=== PATIENT | female | born 1950 | race Caucasian/White ===

== ENCOUNTER 2018-06-09 09:45 | Inpatient (IN) ==
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
[2018-06-09 10:30] LABS: Basophils % 0.2 %; Eosinophils % 0.3 %; Hematocrit 38.3 % (35.3-44.9); Hemoglobin 12.9 g/dL (11.5-15.4); Immature Granulocytes % 0.2 % (0-4); Lymphocytes % 10.9 %; Mean Corpuscular HGB Conc 33.7 g/dL (31.6-35.5); Mean Corpuscular Hemoglobin 31.8 pg (28.0-33.3); Mean Corpuscular Volume 94.3 fL (83.0-100.0); Mean Platelet Volume 9.4 fL (9.4-12.4); Monocytes # 0.4 K/mcL (0.0-1.3); Neutrophils # 7.3 K/mcL (1.6-8.9); Platelet Count 217 K/mcL (140-400); Red Blood Count 4.06 M/mcL (3.82-4.97); Red Cell Distribution Width 12.6 % (11.5-14.5); Segmented Neutrophils % 83.4 %
[2018-06-09 10:42] LABS: Acetaminophen < 10 mcg/mL (10-20); BUN/Creatinine Ratio 15 (6-26); Blood Urea Nitrogen 10 mg/dL (8-23); Carbon Dioxide 29 mEq/L (23-29); Chloride 100 mEq/L (98-107); Ethanol 12 mg/dL (Less than 10); Glucose 119 mg/dL (70-105); Osmolality,Calculated 282 (280-300); Potassium 3.8 mEq/L (3.5-5.1); Salicylate < 2.5 mg/dL (15.0-30.0); Sodium 136 mEq/L (136-145); eGFR For Non-African Americans > 60 (> 60)
[2018-06-09 10:44] LABS: Bilirubin,Urine Small (Negative); Blood,Urine Small (Negative); Clarity,Urine Clear (Clear); Color,Urine Yellow (Yellow); Glucose,Urine (UA) Normal (Normal); Ketones,Urine Trace mg/dL (Negative); Leukocyte Esterase,Urine Large (Negative); Nitrite,Urine Negative (Negative); Protein,Urine Trace mg/dL (Neg-Trace); Specific Gravity,Urine 1.015 (1.010-1.025); Urobilinogen,Urine Normal (Normal)
[2018-06-09 10:48] LABS: Amphetamine Screen,Urine Negative ng/mL (Cutoff=1000); Barbiturate Screen,Urine Negative ng/mL (Cutoff=200); Benzodiazepines Screen,Urine Negative ng/mL (Cutoff=200); Cannabinoid Screen,Urine Negative ng/mL (Cutoff = 50); Cocaine Screen,Urine Negative ng/mL (Cutoff= 300); Opiate Screen,Urine Negative ng/mL (Cutoff=300); Phencyclidine Screen,Urine Negative ng/mL (Cutoff=25)
[2018-06-09 10:49] LABS: Bacteria,Urine None Seen per hpf (None-Few); Hyaline Casts,Urine None Seen per lpf (None-Few); Squamous Epithelial Cell,Urine Many per lpf (None-Few)
--- NOTE | 2018-06-09 15:20 | Emergency Department Note ---
Disposition Clinical Impression: Acute psychosis Disposition: Admitted As Inpatient Condition: Fair Referrals: Tano Celis MD [Partnered Physician] - General Adult HPI - General Chief complaint: ED Psychiatric Symptoms Stated complaint: Hallucinations Time Seen by Provider: 06/09/18 09:47 Source: patient, EMS Mode of arrival: EMS Limitations: no limitations - History of Present Illness Pain Scale: 10 - Related Data Home Medications Medication Instructions Recorded Confirmed BuPROPion SR (12 HR) [Wellbutrin 150 mg PO BID 06/09/18 06/09/18 SR] Cephalexin [Keflex] 500 mg PO Q6H 06/09/18 06/09/18 Docusate Sodium [Dok] 200 mg PO BID 06/09/18 06/09/18 Doxepin HCl 10 mg PO HS 06/09/18 06/09/18 Methadone 20 mg PO Q8HR 06/09/18 06/09/18 Multivitamin/Iron/Folic Acid 1 tab PO DAILY 06/09/18 06/09/18 [Centrum Complete Multivit Tab] OxyCODONE Immed Rel [Roxicodone 10 10 - 20 mg PO Q8H PRN 06/09/18 06/09/18 MG] Ranitidine HCl [Acid Aquatic Biologist] 150 mg PO BID 06/09/18 06/09/18 Tizanidine HCl 4 mg PO TID PRN 06/09/18 06/09/18 Allergies Allergy/AdvReac Type Severity Reaction Status Date / Time pregabalin [From Lyrica] Allergy Confusion Verified 09/13/15 12:44 Constitutional: Denies: fever, chills, weakness, weight change Eyes: Denies: eye pain, eye discharge, vision change ENT ED: Denies: ear pain, throat pain, dental pain, hearing loss, epistaxis, congestion, dysphagia Cardiovascular: Denies: chest pain, palpitations, dyspnea on exertion, edema, syncope Respiratory: Denies: cough, dyspnea, wheezes, hemoptysis, stridor Gastrointestinal: Denies: abdominal pain, nausea, vomiting, diarrhea, constipation, hematemesis, melena, hematochezia Genitourinary: Denies: dysuria, frequency, hematuria, discharge Musculoskeletal: Denies: back pain, neck pain, arthralgia, myalgia Integumentary: Denies: rash, abrasion, lesions Neurological: Denies: headache, weakness, numbness, paresthesias, confusion, abnormal gait, vertigo Psychiatric: Reports: as per HPI, anxiety, visual hallucinations, other ( delusions). Denies: depression, suicidal thoughts, homicidal thoughts, auditory hallucinations Endocrine: Denies: fatigue Hematological/Lymphatic: Denies: easy bleeding, easy bruising Allergic/Immunologic: Denies: facial swelling, urticaria Past Medical History - Past Medical History Medical history: Reports: arthritis, COPD, fibromyalgia, GERD, hepatitis, malignancy, RA, other Surgical history: Reports: other Psychiatric history: Reports: anxiety, depression, panic disorder - Social History Smoking Status: Current every day smoker Smokeless Tobacco Status: No Alcohol use: Reports: none Drug use: Reports: none Physical Exam - General Limitations: no limitations General appearance: alert, in no apparent distress Course Vital Signs Temperature 98.2 F 06/09/18 09:54 Pulse Rate 102 06/09/18 09:54 Respiratory Rate 18 06/09/18 09:54 Blood Pressure 159/110 06/09/18 09:54 O2 Sat by Pulse Oximetry 98 06/09/18 09:54 Temperature 98.2 F 06/09/18 09:54 Pulse Rate 102 06/09/18 09:54 Respiratory Rate 18 06/09/18 09:54 Blood Pressure 159/110 06/09/18 09:54 O2 Sat by Pulse Oximetry 98 06/09/18 09:54 Oxygen Delivery Oxygen Delivery Room Air Medical Decision Making - Lab Data Result diagrams: 06/09/18 09:47 06/09/18 09:47 Lab Results 06/09/18 06/09/18 06/09/18 Range/Units 09:47 09:47 10:25 WBC 8.8 (4.3-11.1) K/mcL RBC 4.06 (3.82-4.97) M/mcL Hgb 12.9 (11.5-15.4) g/dL Hct 38.3 (35.3-44.9) % MCV 94.3 (83.0-100.0) fL MCH 31.8 (28.0-33.3) pg MCHC 33.7 (31.6-35.5) g/dL RDW 12.6 (11.5-14.5) % Plt Count 217 (140-400) K/mcL MPV 9.4 (9.4-12.4) fL Immature Gran % 0.2 (0-4) % Seg Neutrophils % 83.4 % Lymphocytes % 10.9 % Monocytes % 5.0 % Eosinophils % 0.3 % Basophils % 0.2 % Neutrophils # 7.3 (1.6-8.9) K/mcL Lymphocytes # 1.0 (0.6-4.6) K/mcL Monocytes # 0.4 (0.0-1.3) K/mcL Eosinophils # 0.0 (0.0-0.6) K/mcL Basophils # 0.0 (0.0-0.2) K/mcL Sodium 136 (136-145) mEq/L Potassium 3.8 (3.5-5.1) mEq/L Chloride 100 (98-107) mEq/L Carbon Dioxide 29 (23-29) mEq/L BUN 10 (8-23) mg/dL Creatinine 0.67 (0.60-1.20) mg/dL Est GFR ( Amer) > 60 (> 60) Est GFR (Non-Af Amer) > 60 (> 60) BUN/Creatinine Ratio 15 (6-26) Glucose 119 H (70-105) mg/dL Calculated Osmolality 282 (280-300) Calcium 10.0 (8.6-10.3) mg/dL Urine Color Yellow (Yellow) Urine Clarity Clear (Clear) Urine pH 6.0 (5.0-8.0) pH Units Ur Specific [place] 1.015 (1.010-1.025) Urine Protein Trace (Neg-Trace) mg/dL Urine Glucose (UA) Normal (Normal) mg/dL Urine Ketones Trace H (Negative) mg/dL Urine Blood Small H (Negative) Urine Nitrite Negative (Negative) Urine Bilirubin Small H (Negative) Urine Urobilinogen Normal (Normal) mg/dL Ur Leukocyte Esterase Large H (Negative) Urine Microscopic RBC 5-15 H (0-3) per hpf Urine Microscopic WBC 5-15 H (0-3) per hpf Ur Squamous Epith Cells Many H (None-Few) per lpf Urine Bacteria None Seen (None-Few) per hpf Hyaline Casts None Seen (None-Few) per lpf Salicylates < 2.5 L (15.0-30.0) mg/dL Urine Opiates Screen (Hmgvbs=356) ng/mL Acetaminophen < 10 L (10-20) mcg/mL Ur Barbiturates Screen (Vtbbbi=754) ng/mL Ur Phencyclidine Scrn (Cutoff=25) ng/mL Ur Amphetamines Screen (Tqwjwv=3049) ng/mL U Benzodiazepines Scrn (Fyubxh=281) ng/mL Urine Cocaine Screen (Cutoff= 300) ng/mL U Marijuana (THC) Screen (Cutoff = 50) ng/mL Ur Drug Screen Interp Ethyl Alcohol 12 H (Less than 10) mg/dL 06/09/18 Range/Units 10:25 WBC (4.3-11.1) K/mcL RBC (3.82-4.97) M/mcL Hgb (11.5-15.4) g/dL Hct (35.3-44.9) % MCV (83.0-100.0) fL MCH (28.0-33.3) pg MCHC (31.6-35.5) g/dL RDW (11.5-14.5) % Plt Count (140-400) K/mcL MPV (9.4-12.4) fL Immature Gran % (0-4) % Seg Neutrophils % % Lymphocytes % % Monocytes % % Eosinophils % % Basophils % % Neutrophils # (1.6-8.9) K/mcL Lymphocytes # (0.6-4.6) K/mcL Monocytes # (0.0-1.3) K/mcL Eosinophils # (0.0-0.6) K/mcL Basophils # (0.0-0.2) K/mcL Sodium (136-145) mEq/L Potassium (3.5-5.1) mEq/L Chloride (98-107) mEq/L Carbon Dioxide (23-29) mEq/L BUN (8-23) mg/dL Creatinine (0.60-1.20) mg/dL Est GFR ( Amer) (> 60) Est GFR (Non-Af Amer) (> 60) BUN/Creatinine Ratio (6-26) Glucose (70-105) mg/dL Calculated Osmolality (280-300) Calcium (8.6-10.3) mg/dL Urine Color (Yellow) Urine Clarity (Clear) Urine pH (5.0-8.0) pH Units Ur Specific [place] (1.010-1.025) Urine Protein (Neg-Trace) mg/dL Urine Glucose (UA) (Normal) mg/dL Urine Ketones (Negative) mg/dL Urine Blood (Negative) Urine Nitrite (Negative) Urine Bilirubin (Negative) Urine Urobilinogen (Normal) mg/dL Ur Leukocyte Esterase (Negative) Urine Microscopic RBC (0-3) per hpf Urine Microscopic WBC (0-3) per hpf Ur Squamous Epith Cells (None-Few) per lpf Urine Bacteria (None-Few) per hpf Hyaline Casts (None-Few) per lpf Salicylates (15.0-30.0) mg/dL Urine Opiates Screen Negative (Zpzdmf=662) ng/mL Acetaminophen (10-20) mcg/mL Ur Barbiturates Screen Negative (Nltlve=374) ng/mL Ur Phencyclidine Scrn Negative (Cutoff=25) ng/mL Ur Amphetamines Screen Negative (Zfxesy=2339) ng/mL U Benzodiazepines Scrn Negative (Bxlkgz=760) ng/mL Urine Cocaine Screen Negative (Cutoff= 300) ng/mL U Marijuana (THC) Screen Negative (Cutoff = 50) ng/mL Ur Drug Screen Interp See Below Ethyl Alcohol (Less than 10) mg/dL Attestation Statement - Attestation Attestation: For this encounter, I have reviewed the LINE DRIVER or PA documentation, treatment plan, and medical decision making; and I have had face to face time with this patient. [id number] time provided
[2018-06-09] MEDS ORDERED: tiZANidine 4 MG TABLET PO PRN (18:05)
[2018-06-09] MEDS ORDERED: Naloxone 0.4 MG/ML INJ IVP PRN (18:06)
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
[2018-06-09] MEDS: BuPROPion SR (12 HR) 150 MG TABLET PO SCH (22:58)
[2018-06-09] MEDS: Famotidine 20 MG TABLET PO SCH (22:58)
[2018-06-09] MEDS: *HR* Methadone 10 MG TABLET PO SCH (23:52)
[2018-06-09] MEDS: (Doxepin Hcl [Doxepin Hcl] 10 MG) PO SCH (23:52)
[2018-06-10 05:21] LABS: Basophils % 0.4 %; Eosinophils # 0.1 K/mcL (0.0-0.6); Eosinophils % 0.7 %; Hematocrit 41.2 % (35.3-44.9); Hemoglobin 13.7 g/dL (11.5-15.4); Immature Granulocytes % 0.2 % (0-4); Lymphocytes # 2.1 K/mcL (0.6-4.6); Lymphocytes % 20.2 %; Mean Corpuscular HGB Conc 33.3 g/dL (31.6-35.5); Mean Corpuscular Hemoglobin 31.7 pg (28.0-33.3); Mean Corpuscular Volume 95.4 fL (83.0-100.0); Mean Platelet Volume 9.7 fL (9.4-12.4); Monocytes # 0.8 K/mcL (0.0-1.3); Monocytes % 7.1 %; Neutrophils # 7.6 K/mcL (1.6-8.9); Platelet Count 270 K/mcL (140-400); Red Blood Count 4.32 M/mcL (3.82-4.97); Red Cell Distribution Width 12.6 % (11.5-14.5); Segmented Neutrophils % 71.4 %
[2018-06-10 05:43] LABS: Alanine Aminotransferase 24 Units/L (7-52); Albumin 4.9 g/dL (3.5-5.7); Albumin/Globulin Ratio 1.3 (1.1-2.2); Alkaline Phosphatase 74 Units/L (34-104); Aspartate Amino Transferase 36 Units/L (13-39); BUN/Creatinine Ratio 16 (6-26); Bilirubin,Total 0.8 mg/dL (0.3-1.0); Blood Urea Nitrogen 11 mg/dL (8-23); Calcium 9.9 mg/dL (8.6-10.3); Carbon Dioxide 25 mEq/L (23-29); Chloride 100 mEq/L (98-107); Globulin 3.7 g/dL (2.4-3.5); Glucose 102 mg/dL (70-105); Osmolality,Calculated 284 (280-300); Potassium 3.2 mEq/L (3.5-5.1); Sodium 137 mEq/L (136-145); Total Protein 8.6 g/dL (6.4-8.9); eGFR For Non-African Americans > 60 (> 60)
[2018-06-10] MEDS: Famotidine 20 MG TABLET PO SCH ×2 (08:53→19:53)
[2018-06-10] MEDS: *HR* Methadone 10 MG TABLET PO SCH ×3 (08:53→23:38)
[2018-06-10] MEDS: BuPROPion SR (12 HR) 150 MG TABLET PO SCH ×3 (08:54→19:51)
--- NOTE | 2018-06-10 09:56 | Internal Med Progress Note ---
Hospitalist Progress Note - Encounter Date of Encounter: 06/10/18 Time of Encounter: 09:51 - Subjective Interval History: Continues to have altered mental status and psychosis. Etiology unclear, no acute changes overnight. Psychiatry to see this afternoon - Exam Vitals: Temp Pulse Resp BP Pulse Ox 98.3 F 89 18 164/97 97 06/10/18 04:25 06/10/18 07:04 06/10/18 04:25 06/10/18 07:04 06/10/18 07:04 Exam: PHYSICAL EXAMINATION: GENERAL: The patient is a well-developed, well-nourished male in no apparent distress. He is alert and oriented x3. HEENT: Head is normocephalic and atraumatic. Extraocular muscles are intact. Pupils are equal, round, and reactive to light and accommodation. Nares appeared normal. Mouth is well hydrated and without lesions. Mucous membranes are moist. Posterior pharynx clear of any exudate or lesions. NECK: Supple. No carotid bruits. No lymphadenopathy or thyromegaly. LUNGS: Clear to auscultation. HEART: Regular rate and rhythm without murmur. ABDOMEN: Soft, nontender, and nondistended. Positive bowel sounds. No hepatosplenomegaly was noted. EXTREMITIES: Without any cyanosis, clubbing, rash, lesions or edema. NEUROLOGIC: Cranial nerves II through XII are grossly intact. PSYCHIATRIC: Patient having active auditory or visual hallucinations, flights of thoughts and confabulation SKIN: No ulceration or induration present. - Assessment and Plan (1) Acute psychosis Current Visit: Yes Status: Acute Assessment and Plan: Presents with acute psychosis, delusional, flights of thought; patient is difficult to redirect Concern for opiate withdrawal; history of opiate and methadone use; however, urine toxic screen negative for opiates The patient is a poor historian, she reports that she has been taking her opiates regularly Patient denies any suicidal/homicidal ideation, she denies hallucinations however is having obvious auditory/visual hallucinations, during my assessment she was talking to people and into a chair next to me and seeing "streamers "sticking out of her skin. I discussed with her what streamers meant she was unable to provide any detailed answer Obtain CT imaging of head which was negative for acute intracranial abnormality Psychiatrist to see in consultation-once patient medically cleared for discharge to 1-a psychiatric unit Opiates have been resumed with concern for opiate withdrawal however, patient's mental status has not improved, continue to monitor. Medically, the patient does appear stable at this time; defer to psychiatry for discharge Continue home medications Continue to closely monitor for worsening psychosis One-to-one sitter (2) Opiate withdrawal Current Visit: Yes Status: Suspected Assessment and Plan: Above (3) Hypertension Current Visit: Yes Status: Acute Assessment and Plan: Denies history of hypertension and there is no anti-HTN medications on patient' s home medication list. We will start her on a low-dose beta barbara twice a day at this time and she is continuing to be hypertensive throughout this stay. Closely monitor and up titrate as necessary (4) Hypokalemia Current Visit: Yes Status: Acute Assessment and Plan: Potassium 3.2 this morning, replete DVT Prophylaxis: Ambulate - Time Spent with Patient Total time spent is greater than 50% in coordination of care (as documented) at patient's floor/unit and/or counseling patient: less than 15 minutes Plan of Care Discussed with: patient Internal Medicine: Result - Labs CBC & Chem 7: 06/10/18 04:21 06/10/18 04:21 Labs: Short CBC 06/10/18 Range/Units 04:21 WBC 10.6 (4.3-11.1) K/mcL Hgb 13.7 (11.5-15.4) g/dL Hct 41.2 (35.3-44.9) % Plt Count 270 (140-400) K/mcL Neutrophils # 7.6 (1.6-8.9) K/mcL BMP 06/10/18 04:21 Sodium 137 Potassium 3.2 L Chloride 100 Carbon Dioxide 25 BUN 11 Creatinine 0.70 Glucose 102 Calcium 9.9 Liver Function 06/10/18 Range/Units 04:21 Total Bilirubin 0.8 (0.3-1.0) mg/dL AST 36 (13-39) Units/L ALT 24 (7-52) Units/L Alkaline Phosphatase 74 (34-104) Units/L Albumin 4.9 (3.5-5.7) g/dL Consult Discharge Plan - Plan (3) Hypertension Qualifiers: Hypertension type: essential hypertension Qualified Code(s): I10 - Essential (primary) hypertension
--- NOTE | 2018-06-10 15:18 | Consult Note ---
Date of Encounter: 06/10/18 Time of Encounter: 14:30 Assessment & Recommendation (1) Depressed Current visit: Yes Status: Acute Qualifiers: Depression Type: major depressive disorder Active/Remission status: currently active Major depression episode severity: severe Psychotic features: without psychotic features Qualified Code(s): F32.2 - Major depressive disorder, single episode, severe without psychotic features (2) Acute psychosis Current visit: Yes Status: Acute History of Present Illness Patient: new to practice Requesting Physician: Tyler Carter MD Reason for consult: psychosis History of present illness: Pt is a 67 yo, , female, who presents for exacerbation of psychosis and acute intermittent delirium. Pt noted "things have just gotten really bad over the past few weeks. During the interview pt asked her grandmother a question who she stated was sitting in the room with us and then responded with "my grandmother says that you are right." Pt did note she felt safe and comfortable on the unit. Pt was in agreement with treatment plan. Pt noted she slept almost none last night. Pt noted her appetite is reduced....but getting better. Pt rated her depression a 5, on a scale of zero to ten with ten being the worst and zero being none. Pt rate her anxiety a "6, on the same scale. As mentioned previously pt was actively having visual and auditory hallucinations. Pt denied any thoughts to harm herself or anyone else. Pt denied any hx of HIV, TBIs or seizures. when asked if pt had a hx of HEP C she was unclear what HEP C was. No TD noted, AIMS=0 Tobacco: 1ppd Alcohol: Denies any current however noted she did have hx of alcohol use D/O. Pt noted she use to drink 10-12 beers per day......about [address]: Denies Caffeine: 2-3 per day 1.Interval hx 2.Continue current medications 3.Review current labs 4.Pt had an opportunity to ask questions and discuss current treatment plan. 5.Supportive therapy was provided 6.Pt encouraged to consider group or individual therapy 7.Pt was in agreement with treatment plan. 8.Pt was educated on the risks benefits and side effects of current medications. 9. Start risperidone 2 mg PO QHS for mood Pt was educated on the risks benefits and side effects of current medications including no medications, pt was in agreement. 10. Consider reduction of opioid medications. CC: Tyler Carter MD Past Med Surg Social Fam HX - Past Medical History Medical history: arthritis, COPD, fibromyalgia, GERD, hepatitis, malignancy, RA , other - Past Psychiatric History Psychiatric history: Reports: depression Family psychiatric history: Yes Family History of Suicide: None - Past Surgical History Surgical History: other - Social History Smoking Status: Current every day smoker Smokeless Tobacco Status: No Alcohol use: none Drug use: none - Family History Mother Hx Family Cardiac Disorders: Yes Hx Family Respiratory Disorders: No Father Living Status: Age at : 75 Cause of : Colon cancer Hx Family Cardiac Disorders: Yes Hx Family Respiratory Disorders: No Hx Family Cancer: Yes (Colon cancer) Medications & Allergies BuPROPion SR (12 HR) [Wellbutrin SR] 150 mg PO BID 06/09/18 [History] Cephalexin [Keflex] 500 mg PO Q6H 06/09/18 [History] Docusate Sodium [Dok] 200 mg PO BID 06/09/18 [History] Doxepin HCl 10 mg PO HS 06/09/18 [History] Methadone 20 mg PO Q8HR 06/09/18 [History] Multivitamin/Iron/Folic Acid [Centrum Complete Multivit Tab] 1 tab PO DAILY 03/21 [History] OxyCODONE Immed Rel [Roxicodone 10 MG] 10 - 20 mg PO Q8H PRN 06/09/18 [History] Ranitidine HCl [Acid Guide Domestic [employer]] 150 mg PO BID 06/09/18 [History] Tizanidine HCl 4 mg PO TID PRN 06/09/18 [History] 3 Allergy/AdvReac Type Severity Reaction Status Date / Time pregabalin [From Lyrica] Allergy Confusion Verified 09/13/15 12:44 Review of Systems Constitutional: Denies: fever, chills, weakness, weight change Eyes: Denies: eye pain, vision change Ears, Nose, Throat: Denies: ear pain, throat pain, dental pain, hearing loss, congestion Cardiovascular: Denies: chest pain, palpitations, dyspnea on exertion Respiratory: Denies: cough, dyspnea, wheezes Gastrointestinal: Denies: abdominal pain, nausea, vomiting, diarrhea, constipation Genitourinary female: Denies: urgency, dysuria, frequency, abnormal menses, dyspareunia Musculoskeletal: Denies: joint swelling, joint pain Integumentary: Denies: rash, lesions, pruritus Neurological: Denies: headache, weakness, numbness, memory loss Psychiatric: Reports: depression, auditory hallucinations, visual hallucinations Endocrine: Denies: fatigue, heat or cold intolerance Hematologic/Lymphatic: Denies: easy bruising, lymphadenopathy Allergic/Immunologic: Denies: urticaria, itchy eyes Psychiatry Exam - Constitutional Vitals: Temp Pulse Resp BP Pulse Ox 98.3 F 90 18 157/95 97 06/10/18 04:25 06/10/18 10:25 06/10/18 04:25 06/10/18 10:25 06/10/18 07:04 General appearance: age & developmentally appropriate - Musculoskeletal Gait: normal Station: relaxed Strength & Tone: normal for patient - Psychiatric Patient Orientation: Yes Person, Yes Time, Yes Place Level of alertness: Alert Behavior: anxious, agitated Psychomotor activity: Normal Eye Contact: Minimal Contact Mood Description: Anxious Affect description: dysphoric, anxious Speech Volume: Normal Speech pattern: normal rate, normal rhythm, normal tone, fluent Language & Vocabulary: consistent with education Thought Process: Linear, Disorganized (at times) Thought Content: No Suicidal ideation, No Homicidal ideation Perceptual Disturbances: Yes Auditory hallucinations, Yes Visual hallucinations Attention Span Ability: Capable of Focused Attention Memory Description: Recent Impaired Patient Reliability: Questionable Historian Fund of knowledge: Yes average Intelligence Estimate: Average Judgment: Poor Insight: Minimal Results - Labs Labs: Laboratory Last Values WBC 10.6 K/mcL (4.3-11.1) 06/10/18 04:21 RBC 4.32 M/mcL (3.82-4.97) 06/10/18 04:21 Hgb 13.7 g/dL (11.5-15.4) 06/10/18 04:21 Hct 41.2 % (35.3-44.9) 06/10/18 04:21 MCV 95.4 fL (83.0-100.0) 06/10/18 04:21 MCH 31.7 pg (28.0-33.3) 06/10/18 04:21 MCHC 33.3 g/dL (31.6-35.5) 06/10/18 04:21 RDW 12.6 % (11.5-14.5) 06/10/18 04:21 Plt Count 270 K/mcL (140-400) 06/10/18 04:21 MPV 9.7 fL (9.4-12.4) 06/10/18 04:21 Immature Gran % 0.2 % (0-4) 06/10/18 04:21 Seg Neutrophils % 71.4 % 06/10/18 04:21 Lymphocytes % 20.2 % 06/10/18 04:21 Monocytes % 7.1 % 06/10/18 04:21 Eosinophils % 0.7 % 06/10/18 04:21 Basophils % 0.4 % 06/10/18 04:21 Neutrophils # 7.6 K/mcL (1.6-8.9) 06/10/18 04:21 Lymphocytes # 2.1 K/mcL (0.6-4.6) 06/10/18 04:21 Monocytes # 0.8 K/mcL (0.0-1.3) 06/10/18 04:21 Eosinophils # 0.1 K/mcL (0.0-0.6) 06/10/18 04:21 Basophils # 0.0 K/mcL (0.0-0.2) 06/10/18 04:21 Sodium 137 mEq/L (136-145) 06/10/18 04:21 Potassium 3.2 mEq/L (3.5-5.1) L 06/10/18 04:21 Chloride 100 mEq/L (98-107) 06/10/18 04:21 Carbon Dioxide 25 mEq/L (23-29) 06/10/18 04:21 BUN 11 mg/dL (8-23) 06/10/18 04:21 Creatinine 0.70 mg/dL (0.60-1.20) 06/10/18 04:21 Est GFR ( Amer) > 60 (> 60) 06/10/18 04:21 Est GFR (Non-Af Amer) > 60 (> 60) 06/10/18 04:21 BUN/Creatinine Ratio 16 (6-26) 06/10/18 04:21 Glucose 102 mg/dL (70-105) 06/10/18 04:21 Calculated Osmolality 284 (280-300) 06/10/18 04:21 Calcium 9.9 mg/dL (8.6-10.3) 06/10/18 04:21 Total Bilirubin 0.8 mg/dL (0.3-1.0) 06/10/18 04:21 AST 36 Units/L (13-39) 06/10/18 04:21 ALT 24 Units/L (7-52) 06/10/18 04:21 Alkaline Phosphatase 74 Units/L (34-104) 06/10/18 04:21 Serum Total Protein 8.6 g/dL (6.4-8.9) 06/10/18 04:21 Albumin 4.9 g/dL (3.5-5.7) 06/10/18 04:21 Globulin 3.7 g/dL (2.4-3.5) H 06/10/18 04:21 Albumin/Globulin Ratio 1.3 (1.1-2.2) 06/10/18 04:21 Urine Color Yellow (Yellow) 06/09/18 10:25 Urine Clarity Clear (Clear) 06/09/18 10:25 Urine pH 6.0 pH Units (5.0-8.0) 06/09/18 10:25 Ur Specific [place] 1.015 (1.010-1.025) 06/09/18 10:25 Urine Protein Trace mg/dL (Neg-Trace) 06/09/18 10:25 Urine Glucose (UA) Normal mg/dL (Normal) 06/09/18 10:25 Urine Ketones Trace mg/dL (Negative) H 06/09/18 10:25 Urine Blood Small (Negative) H 06/09/18 10:25 Urine Nitrite Negative (Negative) 06/09/18 10:25 Urine Bilirubin Small (Negative) H 06/09/18 10:25 Urine Urobilinogen Normal mg/dL (Normal) 06/09/18 10:25 Ur Leukocyte Esterase Large (Negative) H 06/09/18 10:25 Urine Microscopic RBC 5-15 per hpf (0-3) H 06/09/18 10:25 Urine Microscopic WBC 5-15 per hpf (0-3) H 06/09/18 10:25 Ur Squamous Epith Cells Many per lpf (None-Few) H 06/09/18 10:25 Urine Bacteria None Seen per hpf (None-Few) 06/09/18 10:25 Hyaline Casts None Seen per lpf (None-Few) 06/09/18 10:25 Salicylates < 2.5 mg/dL (15.0-30.0) L 06/09/18 09:47 Urine Opiates Screen Negative ng/mL (Ozqccm=769) 06/09/18 10:25 Acetaminophen < 10 mcg/mL (10-20) L 06/09/18 09:47 Ur Barbiturates Screen Negative ng/mL (Yrqqtg=337) 06/09/18 10:25 Ur Phencyclidine Scrn Negative ng/mL (Cutoff=25) 06/09/18 10:25 Ur Amphetamines Screen Negative ng/mL (Gsehlt=2642) 06/09/18 10:25 U Benzodiazepines Scrn Negative ng/mL (Gdunxr=733) 06/09/18 10:25 Urine Cocaine Screen Negative ng/mL (Cutoff= 300) 06/09/18 10:25 U Marijuana (THC) Screen Negative ng/mL (Cutoff = 50) 06/09/18 10:25 Ur Drug Screen Interp See Below 06/09/18 10:25 Ethyl Alcohol 12 mg/dL (Less than 10) H 06/09/18 09:47 Consult Discharge Plan - Plan Referrals: NONE,PCP [Primary Care Provider] -
[2018-06-10] MEDS: risperiDONE 1 MG TABLET PO SCH (19:50)
[2018-06-10] MEDS: (Doxepin Hcl [Doxepin Hcl] 10 MG) PO SCH (20:04)
[2018-06-11 04:29] LABS: Alanine Aminotransferase 22 Units/L (7-52); Albumin 4.2 g/dL (3.5-5.7); Albumin/Globulin Ratio 1.3 (1.1-2.2); Alkaline Phosphatase 63 Units/L (34-104); Aspartate Amino Transferase 31 Units/L (13-39); BUN/Creatinine Ratio 20 (6-26); Bilirubin,Total 0.9 mg/dL (0.3-1.0); Blood Urea Nitrogen 14 mg/dL (8-23); Calcium 9.1 mg/dL (8.6-10.3); Carbon Dioxide 23 mEq/L (23-29); Chloride 104 mEq/L (98-107); Globulin 3.3 g/dL (2.4-3.5); Glucose 110 mg/dL (70-105); Osmolality,Calculated 277 (280-300); Potassium 3.3 mEq/L (3.5-5.1); Sodium 133 mEq/L (136-145); Total Protein 7.5 g/dL (6.4-8.9); eGFR For Non-African Americans > 60 (> 60)
[2018-06-11 04:53] LABS: Basophils % 0.5 %; Eosinophils # 0.2 K/mcL (0.0-0.6); Eosinophils % 1.9 %; Hematocrit 35.2 % (35.3-44.9); Immature Granulocytes % 0.1 % (0-4); Lymphocytes # 1.9 K/mcL (0.6-4.6); Lymphocytes % 24.9 %; Mean Corpuscular HGB Conc 33.5 g/dL (31.6-35.5); Mean Corpuscular Hemoglobin 32.3 pg (28.0-33.3); Mean Corpuscular Volume 96.4 fL (83.0-100.0); Mean Platelet Volume 9.5 fL (9.4-12.4); Monocytes # 0.6 K/mcL (0.0-1.3); Monocytes % 7.2 %; Neutrophils # 5.1 K/mcL (1.6-8.9); Platelet Count 208 K/mcL (140-400); Red Blood Count 3.65 M/mcL (3.82-4.97); Red Cell Distribution Width 12.6 % (11.5-14.5); Segmented Neutrophils % 65.4 %
[2018-06-11 04:55] LABS: Hemoglobin 11.8 g/dL (11.5-15.4)
--- NOTE | 2018-06-11 08:44 | Internal Med Progress Note ---
Hospitalist Progress Note - Encounter Date of Encounter: 06/11/18 Time of Encounter: 08:41 - Subjective Interval History: Continues to have altered mental status, but appears to be improving. Denies any halllucinations, does not appear to be hallucinating this morning. She was able to express concern for her condition and s/sx which prompted her admission. Psych to see this afternoon. If ok d/c to 1-a inpatient psych unit , appears to be medically stable - Exam Vitals: Temp Pulse Resp BP Pulse Ox 97.7 F 82 16 123/67 94 06/11/18 02:48 06/11/18 02:48 06/11/18 02:48 06/11/18 06:38 06/10/18 18:57 Exam: PHYSICAL EXAMINATION: GENERAL: The patient is a well-developed, well-nourished male in no apparent distress. He is alert and oriented x3. HEENT: Head is normocephalic and atraumatic. Extraocular muscles are intact. Pupils are equal, round, and reactive to light and accommodation. Nares appeared normal. Mouth is well hydrated and without lesions. Mucous membranes are moist. Posterior pharynx clear of any exudate or lesions. NECK: Supple. No carotid bruits. No lymphadenopathy or thyromegaly. LUNGS: Clear to auscultation. HEART: Regular rate and rhythm, s1, s2 without murmur. ABDOMEN: Soft, nontender, and nondistended. Positive bowel sounds. No hepatosplenomegaly was noted. EXTREMITIES: Without any cyanosis, clubbing, rash, lesions or edema. NEUROLOGIC: Cranial nerves II through XII are grossly intact. PSYCHIATRIC: Thoughts are more congruent this morning, no longer having any obvious hallucinations of any type. SKIN: No ulceration or induration present. - Assessment and Plan (1) Acute psychosis Current Visit: Yes Status: Acute Assessment and Plan: Presents with acute psychosis, delusional, flights of thought; patient is difficult to redirect Concern for opiate withdrawal; history of opiate and methadone use; however, urine toxic screen negative for opiates The patient is a poor historian, she reports that she has been taking her opiates regularly Patient denies any suicidal/homicidal ideation, she denies hallucinations however is having obvious auditory/visual hallucinations, during my assessment she was talking to people and into a chair next to me and seeing "streamers "sticking out of her skin. I discussed with her what streamers meant she was unable to provide any detailed answer Obtain CT imaging of head which was negative for acute intracranial abnormality 06/11-- psychosis appears to be improving, patient stopped her more congruent and she is able to participate exam and conversation. She does not appear to have any obvious hallucinations at this time. Yesterday the patient was started on risperidone daily at bedtime for mood. She reports that she was able to actually sleep overnight and she feels much better this morning. She is expressing concern for herself and concern for condition which prompted her admission. She wishes to participate in groups. He would like to discuss a treatment plan with psychiatry. I informed her that psychiatrist will see her this afternoon. Psychiatrist to see in consultation-once patient medically cleared for discharge to a psychiatric unit Opiates have been resumed with concern for opiate withdrawal however, patient's mental status has not improved, continue to monitor. Medically, the patient does appear stable at this time; defer to psychiatry for discharge Continue home medications Continue to closely monitor for worsening psychosis One-to-one sitter (2) Opiate withdrawal Current Visit: Yes Status: Suspected (3) Hypertension Current Visit: Yes Status: Acute Assessment and Plan: Hypertension improved with addition of BB, continue BB at d/c and monitor and adjust while inpatient (4) Hypokalemia Current Visit: Yes Status: Acute Assessment and Plan: mild hypokalemia, K 3.3 THIS AM. Replete DVT Prophylaxis: Ambulate - Time Spent with Patient Total time spent is greater than 50% in coordination of care (as documented) at patient's floor/unit and/or counseling patient: less than 15 minutes Plan of Care Discussed with: patient Internal Medicine: Result - Labs CBC & Chem 7: 06/11/18 03:25 06/11/18 03:25 Labs: Short CBC 06/11/18 Range/Units 03:25 WBC 7.8 (4.3-11.1) K/mcL Hgb 11.8 D (11.5-15.4) g/dL Hct 35.2 L (35.3-44.9) % Plt Count 208 (140-400) K/mcL Neutrophils # 5.1 (1.6-8.9) K/mcL BMP 06/11/18 03:25 Sodium 133 L Potassium 3.3 L Chloride 104 Carbon Dioxide 23 BUN 14 Creatinine 0.70 Glucose 110 H Calcium 9.1 Liver Function 06/11/18 Range/Units 03:25 Total Bilirubin 0.9 (0.3-1.0) mg/dL AST 31 (13-39) Units/L ALT 22 (7-52) Units/L Alkaline Phosphatase 63 (34-104) Units/L Albumin 4.2 (3.5-5.7) g/dL Consult Discharge Plan - Plan Referrals: NONE,PCP [Primary Care Provider] - (3) Hypertension Qualifiers: Hypertension type: essential hypertension Qualified Code(s): I10 - Essential (primary) hypertension
[2018-06-11] MEDS: Famotidine 20 MG TABLET PO SCH ×2 (10:06→21:35)
[2018-06-11] MEDS: BuPROPion SR (12 HR) 150 MG TABLET PO SCH ×2 (10:07→21:35)
[2018-06-11] MEDS: *HR* Methadone 10 MG TABLET PO SCH ×2 (10:07→15:13)
[2018-06-11] MEDS: *HR* OxyCODONE Immed Rel 5 MG TABLET PO PRN (18:31)
[2018-06-11] MEDS: risperiDONE 1 MG TABLET PO SCH (21:35)
[2018-06-11] MEDS: (Doxepin Hcl [Doxepin Hcl] 10 MG) PO SCH (21:38)
[2018-06-12] MEDS: *HR* Methadone 10 MG TABLET PO SCH ×2 (00:06→09:57)
[2018-06-12] MEDS: *HR* OxyCODONE Immed Rel 5 MG TABLET PO PRN (03:33)
[2018-06-12 04:50] LABS: Basophils % 0.4 %; Eosinophils # 0.2 K/mcL (0.0-0.6); Eosinophils % 2.4 %; Hematocrit 36.5 % (35.3-44.9); Hemoglobin 12.1 g/dL (11.5-15.4); Immature Granulocytes % 0.3 % (0-4); Lymphocytes # 2.3 K/mcL (0.6-4.6); Lymphocytes % 30.2 %; Mean Corpuscular HGB Conc 33.2 g/dL (31.6-35.5); Mean Corpuscular Hemoglobin 31.8 pg (28.0-33.3); Mean Corpuscular Volume 95.8 fL (83.0-100.0); Mean Platelet Volume 9.4 fL (9.4-12.4); Monocytes # 0.5 K/mcL (0.0-1.3); Monocytes % 6.7 %; Neutrophils # 4.7 K/mcL (1.6-8.9); Platelet Count 213 K/mcL (140-400); Red Blood Count 3.81 M/mcL (3.82-4.97); Red Cell Distribution Width 12.7 % (11.5-14.5)
[2018-06-12 05:10] LABS: Alanine Aminotransferase 21 Units/L (7-52); Albumin 4.2 g/dL (3.5-5.7); Albumin/Globulin Ratio 1.2 (1.1-2.2); Alkaline Phosphatase 66 Units/L (34-104); Aspartate Amino Transferase 26 Units/L (13-39); BUN/Creatinine Ratio 19 (6-26); Bilirubin,Total 0.6 mg/dL (0.3-1.0); Blood Urea Nitrogen 13 mg/dL (8-23); Calcium 9.3 mg/dL (8.6-10.3); Carbon Dioxide 24 mEq/L (23-29); Chloride 104 mEq/L (98-107); Globulin 3.4 g/dL (2.4-3.5); Glucose 107 mg/dL (70-105); Osmolality,Calculated 279 (280-300); Potassium 4.1 mEq/L (3.5-5.1); Sodium 134 mEq/L (136-145); Total Protein 7.6 g/dL (6.4-8.9); eGFR For Non-African Americans > 60 (> 60)
[2018-06-12] MEDS: BuPROPion SR (12 HR) 150 MG TABLET PO SCH (09:56)
[2018-06-12] MEDS: Famotidine 20 MG TABLET PO SCH (09:56)
--- NOTE | 2018-06-12 10:19 | Internal Med Progress Note ---
Hospitalist Progress Note - Encounter Date of Encounter: 06/12/18 Time of Encounter: 10:14 - Subjective Interval History: Altered mental status improving. Continues to deny any halllucinations, does not appear to be hallucinating this morning. She was able to express concern for her condition, safety and s/sx which prompted her admission. Psych to see this afternoon - Exam Vitals: Temp Pulse Resp BP Pulse Ox 97.5 F L 69 16 112/77 96 06/12/18 07:53 06/12/18 07:53 06/12/18 07:53 06/12/18 07:53 06/12/18 04:00 Exam: PHYSICAL EXAMINATION: GENERAL: The patient is a well-developed, well-nourished female in no apparent distress. She is alert and oriented x3, but still displays some episodedsof confusion; she is unclear of events prompting her admission. HEENT: Head is normocephalic and atraumatic. Extraocular muscles are intact. Pupils are equal, round, and reactive to light and accommodation. NECK: Supple. No carotid bruits. No lymphadenopathy or thyromegaly. LUNGS: Clear to auscultation. HEART: Regular rate and rhythm, s1, s2 without murmur. ABDOMEN: Soft, nontender, and nondistended. Positive bowel sounds. No hepatosplenomegaly was noted. EXTREMITIES: Without any cyanosis, clubbing, rash, lesions or edema. NEUROLOGIC: Cranial nerves II through XII are grossly intact. PSYCHIATRIC: Thoughts are more congruent this morning, no longer having any obvious hallucinations of any type. SKIN: No ulceration or induration present. - Assessment and Plan (1) Acute psychosis Current Visit: Yes Status: Acute Assessment and Plan: Presents with acute psychosis, delusional, flights of thought; patient is difficult to redirect Concern for opiate withdrawal; history of opiate and methadone use; however, urine toxic screen negative for opiates The patient is a poor historian, she reports that she has been taking her opiates regularly Patient denies any suicidal/homicidal ideation, she denies hallucinations however is having obvious auditory/visual hallucinations, during my assessment she was talking to people and into a chair next to me and seeing "streamers "sticking out of her skin. I discussed with her what streamers meant she was unable to provide any detailed answer Obtain CT imaging of head which was negative for acute intracranial abnormality 06/12--continuing to improve, no obvious signs of psychosis; likely 2/2 opiate withdrawal. Lives at home alone, but reports daughter has visited recently and has a h/o substance abuse. She is unaware of her situation with her medications. She reports that she manages her medication herself and has not had any prior issues. Awaiting psychs evaluation in regards to psychosis. If patient deemed appropriate, d/c this afternoon. Continue to closely monitor for worsening psychosis One-to-one sitter (2) Opiate withdrawal Current Visit: Yes Status: Suspected Assessment and Plan: psychosis thought to be caused by opiate withdrawal see above (3) Hypertension Current Visit: Yes Status: Acute Assessment and Plan: Hypertension stable, HTN on arrival; no h/o HTN prior to admission; improved with addition of BB, continue BB at d/c and monitor and adjust while inpatient -will need BB at d/c (4) Hypokalemia Current Visit: Yes Status: Acute Assessment and Plan: resolved DVT Prophylaxis: increase activity - Time Spent with Patient Total time spent is greater than 50% in coordination of care (as documented) at patient's floor/unit and/or counseling patient: less than 15 minutes Plan of Care Discussed with: patient Internal Medicine: Result - Labs CBC & Chem 7: 06/12/18 03:59 06/12/18 03:59 Labs: Short CBC 06/12/18 Range/Units 03:59 WBC 7.8 (4.3-11.1) K/mcL Hgb 12.1 (11.5-15.4) g/dL Hct 36.5 (35.3-44.9) % Plt Count 213 (140-400) K/mcL Neutrophils # 4.7 (1.6-8.9) K/mcL BMP 06/12/18 03:59 Sodium 134 L Potassium 4.1 Chloride 104 Carbon Dioxide 24 BUN 13 Creatinine 0.70 Glucose 107 H Calcium 9.3 Liver Function 06/12/18 Range/Units 03:59 Total Bilirubin 0.6 (0.3-1.0) mg/dL AST 26 (13-39) Units/L ALT 21 (7-52) Units/L Alkaline Phosphatase 66 (34-104) Units/L Albumin 4.2 (3.5-5.7) g/dL - VTE Documentation of Mechanical Device: Intermittent pneumatic compression device Consult Discharge Plan - Plan Referrals: NONE,PCP [Primary Care Provider] - (3) Hypertension Qualifiers: Hypertension type: essential hypertension Qualified Code(s): I10 - Essential (primary) hypertension
[2018-06-12 12:18] VITALS: BP 94/87
--- NOTE | 2018-06-12 13:10 | Consult Note ---
Date of Encounter: 06/12/18 Time of Encounter: 13:06 Assessment & Recommendation (1) Acute psychosis Current visit: Yes Status: Acute Assessment & Recommendation: Psychosis seems to have resolved with Risperdal. Recommend she continue this medication until she follows up with her family physician. Since she has no mental health history her PCP can wean her off it to see how she does. If hallucinations return recommend restarting medication and referring her to an outpatient psychiatrist. History of Present Illness Requesting Physician: Tyler Carter MD Reason for consult: D/C planning History of present illness: Ms. Singletary is a 67 year old female who was seen by the psychiatry consult service due to new onset hallucinations. Started on Risperdal with positive results. Client denies any further hallucinations today. No evidence of psychosis or responding to internal stimuli when speaking with this sports writer. Client denies SI/HI and states these were never a concern for her. Seems stable for discharge. CC: Tyler Carter MD Past Med Surg Social Fam HX - Past Medical History Medical history: arthritis, COPD, fibromyalgia, GERD, hepatitis, malignancy, RA , other - Past Psychiatric History Psychiatric history: Reports: no psych history Family psychiatric history: Unknown Family History of Suicide: Unknown - Past Surgical History Surgical History: other - Social History Smoking Status: Current every day smoker Smokeless Tobacco Status: No Alcohol use: none Drug use: none - Family History Mother Hx Family Cardiac Disorders: Yes Hx Family Respiratory Disorders: No Father Living Status: Age at : 75 Cause of : Colon cancer Hx Family Cardiac Disorders: Yes Hx Family Respiratory Disorders: No Hx Family Cancer: Yes (Colon cancer) Medications & Allergies BuPROPion SR (12 HR) [Wellbutrin SR] 150 mg PO BID 06/09/18 [History] Cephalexin [Keflex] 500 mg PO Q6H 06/09/18 [History] Docusate Sodium [Dok] 200 mg PO BID 06/09/18 [History] Doxepin HCl 10 mg PO HS 06/09/18 [History] Methadone 20 mg PO Q8HR 06/09/18 [History] Multivitamin/Iron/Folic Acid [Centrum Complete Multivit Tab] 1 tab PO DAILY 03/21 [History] OxyCODONE Immed Rel [Roxicodone 10 MG] 10 - 20 mg PO Q8H PRN 06/09/18 [History] Ranitidine HCl [Acid Writer Producer] 150 mg PO BID 06/09/18 [History] Tizanidine HCl 4 mg PO TID PRN 06/09/18 [History] 3 Allergy/AdvReac Type Severity Reaction Status Date / Time pregabalin [From Lyrica] Allergy Confusion Verified 09/13/15 12:44 Review of Systems Constitutional: Denies: fever, chills, weakness, weight change Eyes: Denies: eye pain, vision change Ears, Nose, Throat: Denies: ear pain, throat pain, dental pain, hearing loss, congestion Cardiovascular: Denies: chest pain, palpitations, dyspnea on exertion Respiratory: Denies: cough, dyspnea, wheezes Gastrointestinal: Denies: abdominal pain, nausea, vomiting, diarrhea, constipation Genitourinary female: Denies: urgency, dysuria, frequency, abnormal menses, dyspareunia Musculoskeletal: Denies: joint swelling, joint pain Integumentary: Denies: rash, lesions, pruritus Neurological: Denies: headache, weakness, numbness, memory loss Psychiatric: Reports: depression, auditory hallucinations, visual hallucinations Endocrine: Denies: fatigue, heat or cold intolerance Hematologic/Lymphatic: Denies: easy bruising, lymphadenopathy Allergic/Immunologic: Denies: urticaria, itchy eyes Psychiatry Exam - Constitutional Vitals: Temp Pulse Resp BP Pulse Ox 97.6 F 86 18 94/87 96 06/12/18 12:17 06/12/18 12:17 06/12/18 12:17 06/12/18 12:17 06/12/18 04:00 General appearance: age & developmentally appropriate, well-groomed, well- nourished - Musculoskeletal Gait: normal Station: relaxed Strength & Tone: normal for patient - Psychiatric Patient Orientation: Yes Person, Yes Time, Yes Place Level of alertness: Alert Behavior: calm, cooperative Psychomotor activity: Normal Eye Contact: Maintains Eye Contact Mood Description: Euthymic/stable Affect description: congruent with mood, full range Speech Volume: Normal Speech pattern: normal rate, normal rhythm, normal tone, fluent, spontaneous Language & Vocabulary: consistent with education Thought Process: Linear, Goal Oriented Thought Content: No Suicidal ideation, No Homicidal ideation, No Overt delusions Perceptual Disturbances: No Auditory hallucinations, No Visual hallucinations Attention Span Ability: Capable of Focused Attention Memory Description: Grossly Intact Patient Reliability: Reliable Historian Fund of knowledge: Yes abstraction ability, Yes aware of current events Intelligence Estimate: Average Judgment: Fair Insight: Partial Results - Labs Labs: Laboratory Last Values WBC 7.8 K/mcL (4.3-11.1) 06/12/18 03:59 RBC 3.81 M/mcL (3.82-4.97) L 06/12/18 03:59 Hgb 12.1 g/dL (11.5-15.4) 06/12/18 03:59 Hct 36.5 % (35.3-44.9) 06/12/18 03:59 MCV 95.8 fL (83.0-100.0) 06/12/18 03:59 MCH 31.8 pg (28.0-33.3) 06/12/18 03:59 MCHC 33.2 g/dL (31.6-35.5) 06/12/18 03:59 RDW 12.7 % (11.5-14.5) 06/12/18 03:59 Plt Count 213 K/mcL (140-400) 06/12/18 03:59 MPV 9.4 fL (9.4-12.4) 06/12/18 03:59 Immature Gran % 0.3 % (0-4) 06/12/18 03:59 Seg Neutrophils % 60.0 % 06/12/18 03:59 Lymphocytes % 30.2 % 06/12/18 03:59 Monocytes % 6.7 % 06/12/18 03:59 Eosinophils % 2.4 % 06/12/18 03:59 Basophils % 0.4 % 06/12/18 03:59 Neutrophils # 4.7 K/mcL (1.6-8.9) 06/12/18 03:59 Lymphocytes # 2.3 K/mcL (0.6-4.6) 06/12/18 03:59 Monocytes # 0.5 K/mcL (0.0-1.3) 06/12/18 03:59 Eosinophils # 0.2 K/mcL (0.0-0.6) 06/12/18 03:59 Basophils # 0.0 K/mcL (0.0-0.2) 06/12/18 03:59 Sodium 134 mEq/L (136-145) L 06/12/18 03:59 Potassium 4.1 mEq/L (3.5-5.1) 06/12/18 03:59 Chloride 104 mEq/L (98-107) 06/12/18 03:59 Carbon Dioxide 24 mEq/L (23-29) 06/12/18 03:59 BUN 13 mg/dL (8-23) 06/12/18 03:59 Creatinine 0.70 mg/dL (0.60-1.20) 06/12/18 03:59 Est GFR ( Amer) > 60 (> 60) 06/12/18 03:59 Est GFR (Non-Af Amer) > 60 (> 60) 06/12/18 03:59 BUN/Creatinine Ratio 19 (6-26) 06/12/18 03:59 Glucose 107 mg/dL (70-105) H 06/12/18 03:59 Calculated Osmolality 279 (280-300) L 06/12/18 03:59 Calcium 9.3 mg/dL (8.6-10.3) 06/12/18 03:59 Total Bilirubin 0.6 mg/dL (0.3-1.0) 06/12/18 03:59 AST 26 Units/L (13-39) 06/12/18 03:59 ALT 21 Units/L (7-52) 06/12/18 03:59 Alkaline Phosphatase 66 Units/L (34-104) 06/12/18 03:59 Serum Total Protein 7.6 g/dL (6.4-8.9) 06/12/18 03:59 Albumin 4.2 g/dL (3.5-5.7) 06/12/18 03:59 Globulin 3.4 g/dL (2.4-3.5) 06/12/18 03:59 Albumin/Globulin Ratio 1.2 (1.1-2.2) 06/12/18 03:59 Urine Color Yellow (Yellow) 06/09/18 10:25 Urine Clarity Clear (Clear) 06/09/18 10:25 Urine pH 6.0 pH Units (5.0-8.0) 06/09/18 10:25 Ur Specific [place] 1.015 (1.010-1.025) 06/09/18 10:25 Urine Protein Trace mg/dL (Neg-Trace) 06/09/18 10:25 Urine Glucose (UA) Normal mg/dL (Normal) 06/09/18 10:25 Urine Ketones Trace mg/dL (Negative) H 06/09/18 10:25 Urine Blood Small (Negative) H 06/09/18 10:25 Urine Nitrite Negative (Negative) 06/09/18 10:25 Urine Bilirubin Small (Negative) H 06/09/18 10:25 Urine Urobilinogen Normal mg/dL (Normal) 06/09/18 10:25 Ur Leukocyte Esterase Large (Negative) H 06/09/18 10:25 Urine Microscopic RBC 5-15 per hpf (0-3) H 06/09/18 10:25 Urine Microscopic WBC 5-15 per hpf (0-3) H 06/09/18 10:25 Ur Squamous Epith Cells Many per lpf (None-Few) H 06/09/18 10:25 Urine Bacteria None Seen per hpf (None-Few) 06/09/18 10:25 Hyaline Casts None Seen per lpf (None-Few) 06/09/18 10:25 Salicylates < 2.5 mg/dL (15.0-30.0) L 06/09/18 09:47 Urine Opiates Screen Negative ng/mL (Hestel=345) 06/09/18 10:25 Acetaminophen < 10 mcg/mL (10-20) L 06/09/18 09:47 Ur Barbiturates Screen Negative ng/mL (Bbuhvx=826) 06/09/18 10:25 Ur Phencyclidine Scrn Negative ng/mL (Cutoff=25) 06/09/18 10:25 Ur Amphetamines Screen Negative ng/mL (Dlnpor=9826) 06/09/18 10:25 U Benzodiazepines Scrn Negative ng/mL (Lghzso=594) 06/09/18 10:25 Urine Cocaine Screen Negative ng/mL (Cutoff= 300) 06/09/18 10:25 U Marijuana (THC) Screen Negative ng/mL (Cutoff = 50) 06/09/18 10:25 Ur Drug Screen Interp See Below 06/09/18 10:25 Ethyl Alcohol 12 mg/dL (Less than 10) H 06/09/18 09:47 Consult Discharge Plan - Plan Referrals: NONE,PCP [Primary Care Provider] -
--- NOTE | 2018-06-12 16:16 | Discharge Summary ---
- NOTES TO OUTPATIENT PROVIDER Notes to Outpatient Provider: Patient seen with acute psychosis, thought to be caused by opiate withdrawal. Please discuss appropriate use of opiates. Acute psychosis resolved with reinitiation of opiate medications. Date of Encounter: 06/12/18 Time of Encounter: 16:14 - Discharge Diagnosis (1) Acute psychosis Priority: Primary Status: Acute Assessment and Plan: Presents with acute psychosis, delusional, flights of thought; patient is difficult to redirect Concern for opiate withdrawal; history of opiate and methadone use; however, urine toxic screen negative for opiates The patient is a poor historian, she reports that she has been taking her opiates regularly Patient denies any suicidal/homicidal ideation, she denies hallucinations however is having obvious auditory/visual hallucinations, during my assessment she was talking to people and into a chair next to me and seeing "streamers "sticking out of her skin. I discussed with her what streamers meant she was unable to provide any detailed answer Obtain CT imaging of head which was negative for acute intracranial abnormality 06/12--continuing to improve, no obvious signs of psychosis; likely 2/2 opiate withdrawal. Lives at home alone, but reports daughter has visited recently and has a h/o substance abuse. She is unaware of her situation with her medications. She reports that she manages her medication herself and has not had any prior issues. Awaiting psychs evaluation in regards to psychosis. If patient deemed appropriate, d/c this afternoon. Continue to closely monitor for worsening psychosis One-to-one sitter (2) Opiate withdrawal Priority: Secondary Status: Suspected Assessment and Plan: psychosis thought to be caused by opiate withdrawal see above (3) Hypertension Priority: Secondary Status: Acute Assessment and Plan: Hypertension stable, HTN on arrival; no h/o HTN prior to admission; improved with addition of BB, continue BB at d/c and monitor and adjust while inpatient -will need BB at d/c Qualifiers: Hypertension type: essential hypertension Qualified Code(s): I10 - Essential (primary) hypertension (4) Hypokalemia Priority: Secondary Status: Acute Assessment and Plan: resolved Hospital course: Ms. Singletary is a 67 year old female who was admitted with acute psychosis experiencing hallucinations. This was stopped because of opiate withdrawal. The patient is prescribed opiates and methadone however, urine drug screen was negative for opiates. Unclear why she has experienced opiate withdrawal however , she reports that her daughter does have substance abuse issues and was recently at her house, there may be some correlation. Opiates were reinitiated and patient started to improve. Psychiatry seeing in consultation throughout stay and started patient on Risperdal, psychiatry recommends continue Risperdal discharge and to follow-up with PCP to determine whether or not continuing Risperdal would be beneficial to patient's overall health. Patient has now progressed back to baseline and is without any internal stimuli or hallucinations at this point. She has no evidence of psychosis and denies any intent to harm herself or others. Psychiatry deems the patient stable for discharge. Given there are no other acute medical issues the patient will be discharged home. Discharge discussed with: patient, nurse, ergonomics consultant - Time Spent with Patient Total time spent providing and/or coordinating discharge services: Less than 30 minutes - Discharge Medications Prescriptions: Metoprolol [Lopressor] 12.5 mg PO BID 30 Days #15 tablet Home Medications: BuPROPion SR (12 HR) [Wellbutrin SR] 150 mg PO BID 06/09/18 [History] Docusate Sodium [Dok] 200 mg PO BID 06/09/18 [History] Doxepin HCl 10 mg PO HS 06/09/18 [History] Methadone 20 mg PO Q8HR 06/09/18 [History] Multivitamin/Iron/Folic Acid [Centrum Complete Multivit Tab] 1 tab PO DAILY 03/21 [History] OxyCODONE Immed Rel [Roxicodone 10 MG] 10 - 20 mg PO Q8H PRN 06/09/18 [History] Ranitidine HCl [Acid Electronic Funds Transfer Coordinator] 150 mg PO BID 06/09/18 [History] Tizanidine HCl 4 mg PO TID PRN 06/09/18 [History] Metoprolol [Lopressor] 12.5 mg PO BID 30 Days #15 tablet 06/12/18 [Rx] Allergies/Adverse Reactions: 3 Allergy/AdvReac Type Severity Reaction Status Date / Time pregabalin [From Lyrica] Allergy Confusion Verified 09/13/15 12:44 Date of admission: 06/10/18 03:51 Primary care physician: PCP NONE Consults: 06/10/18 10:05 Consult to Psychiatry [CONS] Routine Consulting Provider: [facility] Reason consult: Psychosis Other reason and/or additional details: Call Completed: No 06/11/18 16:45 Consult to Psychiatry [CONS] Routine Consulting Provider: [facility] Reason consult: Psychosis Other reason and/or additional details: Hallucinations, discuss medication regimen, D/C planning and group therapy. Call Completed: No Discharging clinician: Román Gill Anticipated date of discharge: 06/12/18 - Constitutional Vitals: Temp Pulse Resp BP Pulse Ox 97.6 F 86 18 94/87 96 06/12/18 12:17 06/12/18 12:17 06/12/18 12:17 06/12/18 12:17 06/12/18 04:00 General appearance: Present: A&O X 3 Exam: . - Head Head exam: Present: atraumatic, normocephalic - Eye Eye exam: Present: PERRL, conjuntiva pink, sclera anicteric Pupils: Present: PERRL - Neck Neck exam general surgery: Present: supple, trachea midline. Absent: lymphadenopathy - Respiratory Respiratory exam: Present: CTAB. Absent: accessory muscle use, rales, rhonchi, wheezes - Cardiovascular Cardiovascular exam: Present: RRR, +S1, +S2. Absent: diastolic murmur, gallop, rubs, systolic murmur - GI/Abdominal GI/Abdominal exam: Present: normal bowel sounds, soft, no peritoneal signs. Absent: distended, tenderness - Extremities Exam Extremities exam: Present: warm, radial pulses palpable and symmetrical. Absent : calf tenderness, cyanotic, pedal edema - Neurological Exam Neurological exam: Present: CN II-XII intact, oriented X3, no focal deficits. Absent: pronater drift, facial droop, speech deficit - Skin Skin exam: Present: dry, intact - Patient Status Disposition: Home, Self-Care Condition: Fair Functional capacity at discharge: independent ambulation Overall status at discharge: patient is back to baseline - Discharge Instructions Follow Up With: NONE,PCP [Primary Care Provider] - Forms: ED Satisfaction Letter - Diet and Activity Activity: increase activity as tolerated, resume usual activities as tolerated Diet: advance to your usual diet - VTE Documentation of Mechanical Device: Intermittent pneumatic compression device
== END 2018-06-12 18:05 | disposition home or self-care (01) | DRG 897 ==
LOC: 2NENU 09:45 → EMEROOARM 09:45 → 2NENU 20:17
PROVIDERS: ADMIT Internal Medicine; ATTEND Internal Medicine

== ENCOUNTER 2021-09-21 12:02 | Observation (INO) ==
[2021-09-21] MEDS ORDERED: 0.9 % Sodium Chloride 1,000 ML IVC ONE (12:07)
[2021-09-21 12:33] LABS: Basophils % 0.2 %; Eosinophils # 0.1 K/mcL (0.0-0.6); Eosinophils % 0.6 %; Hematocrit 44.9 % (35.3-44.9); Hemoglobin 15.3 g/dL (11.5-15.4); Immature Granulocytes % 0.4 % (0-4); Lymphocytes # 1.2 K/mcL (0.6-4.6); Lymphocytes % 14.7 %; Mean Corpuscular HGB Conc 34.1 g/dL (31.6-35.5); Mean Corpuscular Hemoglobin 32.3 pg (28.0-33.3); Mean Corpuscular Volume 94.9 fL (83.0-100.0); Mean Platelet Volume 9.3 fL (9.4-12.4); Monocytes # 0.5 K/mcL (0.0-1.3); Monocytes % 5.6 %; Neutrophils # 6.4 K/mcL (1.6-8.9); Platelet Count 196 K/mcL (140-400); Red Blood Count 4.73 M/mcL (3.82-4.97); Red Cell Distribution Width 11.9 % (11.5-14.5); Segmented Neutrophils % 78.5 %; White Blood Count 8.2 K/mcL (4.3-11.1)
[2021-09-21 12:41] LABS: Prothrombin Time 11.5 Seconds (9.4-12.1)
[2021-09-21 12:44] LABS: Activated Partial Thrombo Time 34.2 Seconds (26.0-36.0)
[2021-09-21 12:56] LABS: Alanine Aminotransferase 18 Units/L (7-52); Albumin 4.5 g/dL (3.5-5.7); Alkaline Phosphatase 72 Units/L (34-104); Aspartate Amino Transferase 21 Units/L (13-39); BUN/Creatinine Ratio 17 (6-26); Bilirubin,Direct 0.2 mg/dL (0.0-0.2); Bilirubin,Indirect 0.6 mg/dL (0.0-1.0); Bilirubin,Total 0.8 mg/dL (0.3-1.0); Blood Urea Nitrogen 12 mg/dL (8-23); Calcium 10.1 mg/dL (8.6-10.3); Carbon Dioxide 30 mEq/L (23-29); Chloride 95 mEq/L (98-107); Ethanol < 10 mg/dL (Less than 10); Globulin 4.3 g/dL (2.4-3.5); Glucose 102 mg/dL (70-105); Osmolality,Calculated 284 (280-300); Potassium 3.4 mEq/L (3.5-5.1); Sodium 137 mEq/L (136-145); Total Protein 8.8 g/dL (6.4-8.9); eGFR For African Americans > 60 (> 60); eGFR For Non-African Americans > 60 (> 60)
[2021-09-21 13:00] LABS: Troponin I 0.04 ng/mL (< 0.04)
[2021-09-21 13:33] LABS: Bilirubin,Urine Negative (Negative); Blood,Urine Trace (Negative); Clarity,Urine Clear (Clear); Color,Urine Light-Yellow (Yellow); Glucose,Urine (UA) Normal (Normal); Ketones,Urine 20 mg/dL (Negative); Leukocyte Esterase,Urine Large (Negative); Mucus,Urine Few per lpf (None-Few); Nitrite,Urine Negative (Negative); PH,Urine 7.5 pH Units (5.0-8.0); Protein,Urine 30 mg/dL (Neg-Trace); Renal Epithelial Cells,Urine Few per hpf (None-Few); Specific Gravity,Urine 1.013 (1.010-1.025); Squamous Epithelial Cell,Urine Few per hpf (None-Few); Transitional Epi Cells,Urine Few per hpf (None-Few); Urobilinogen,Urine Normal (Normal); WBC,Urine 15-30 per hpf (0-3)
[2021-09-21 13:38] LABS: Amphetamine Screen,Urine Negative ng/mL (Cutoff=1000); Barbiturate Screen,Urine Negative ng/mL (Cutoff=200); Benzodiazepines Screen,Urine Negative ng/mL (Cutoff=200); Cannabinoid Screen,Urine Negative ng/mL (Cutoff = 50); Cocaine Screen,Urine Negative ng/mL (Cutoff= 300); Opiate Screen,Urine Negative ng/mL (Cutoff=300); Phencyclidine Screen,Urine Negative ng/mL (Cutoff=25)
[2021-09-21] MEDS ORDERED: cefTRIAXone 1,000 MG in 0.9 % Sodium Chloride Mini Bag 100 ML IVPB ONE (13:40)
[2021-09-21 14:34] LABS: Influenza A PCR Negative (Negative); Influenza B PCR Negative (Negative); Resp. Syncytial Virus PCR Negative (Negative)
[2021-09-21] MEDS ORDERED: Naloxone 0.4 MG/ML INJ IVP PRN (14:37)
[2021-09-21] MEDS ORDERED: Acetaminophen 325 MG TABLET PO PRN (14:37)
[2021-09-21] MEDS ORDERED: Ondansetron 4 MG/2 ML VIAL IVP PRN (14:37)
[2021-09-21 14:39] LABS: SARS-CoV-2 by PCR (In House) Negative (Negative)
[2021-09-21 15:13] LABS: VBG HCO3 28 mEq/L (21-27); VBG PCO2 41 mmHg (41-51); VBG PH 7.44 pH Units (7.32-7.42); VBG PO2 29 mmHg (25-50)
[2021-09-21 15:30] LABS: Acetaminophen < 10 mcg/mL (10-20); Salicylate < 2.5 mg/dL (15.0-30.0)
[2021-09-21 15:43] LABS: Thyroid Stimulating Hormone 1.477 mcIU/mL (0.340-5.600)
[2021-09-21] MEDS ORDERED: Dextrose Gel 15 GM/37.5 ML TUBE PO PRN ×2 (16:49)
[2021-09-21] MEDS ORDERED: D5% in Water 1,000 ML IVC PRN (16:49)
[2021-09-21] MEDS ORDERED: *HR* Dextrose 50 % in Water (Syg) 50 ML SYRINGE IVP PRN (16:49)
[2021-09-21] MEDS: Aspirin 81 MG TAB.CHEW PO SCH (17:57)
[2021-09-21] MEDS: Ringers Solution, Lactated 1,000 ML IVC SCH (17:57)
[2021-09-21] MEDS: carvediloL 6.25 MG TABLET PO SCH (17:57)
[2021-09-21] MEDS: Lactobacillus 1 EACH CAP.SPRINK PO SCH (19:56)
[2021-09-21] MEDS ORDERED: Ipratropium/Albuterol Neb 3 ML IH PRN (20:40)
[2021-09-21] MEDS ORDERED: Ipratropium/Albuterol Neb 3 ML IH SCH (22:00)
[2021-09-22 03:34] LABS: Basophils % 0.5 %; Eosinophils # 0.2 K/mcL (0.0-0.6); Eosinophils % 1.9 %; Hematocrit 39.9 % (35.3-44.9); Hemoglobin 13.6 g/dL (11.5-15.4); Immature Granulocytes % 0.2 % (0-4); Lymphocytes # 2.3 K/mcL (0.6-4.6); Lymphocytes % 25.7 %; Mean Corpuscular HGB Conc 34.1 g/dL (31.6-35.5); Mean Corpuscular Hemoglobin 32.7 pg (28.0-33.3); Mean Corpuscular Volume 95.9 fL (83.0-100.0); Mean Platelet Volume 9.5 fL (9.4-12.4); Monocytes # 0.8 K/mcL (0.0-1.3); Monocytes % 8.9 %; Neutrophils # 5.5 K/mcL (1.6-8.9); Platelet Count 210 K/mcL (140-400); Red Blood Count 4.16 M/mcL (3.82-4.97); Red Cell Distribution Width 12.2 % (11.5-14.5); Segmented Neutrophils % 62.8 %; White Blood Count 8.8 K/mcL (4.3-11.1)
[2021-09-22 03:40] LABS: Prothrombin Time 11.5 Seconds (9.4-12.1)
[2021-09-22 03:53] LABS: Alanine Aminotransferase 15 Units/L (7-52); Albumin 3.9 g/dL (3.5-5.7); Albumin/Globulin Ratio 1.1 (1.1-2.2); Alkaline Phosphatase 60 Units/L (34-104); Aspartate Amino Transferase 19 Units/L (13-39); BUN/Creatinine Ratio 19 (6-26); Bilirubin,Total 0.7 mg/dL (0.3-1.0); Blood Urea Nitrogen 11 mg/dL (8-23); Calcium 9.3 mg/dL (8.6-10.3); Carbon Dioxide 26 mEq/L (23-29); Chloride 102 mEq/L (98-107); Chol/HDL Ratio 3.6 (0-4.9); Cholesterol 171 mg/dL (< 200); Estimated Average Glucose 105 mg/dl; Globulin 3.7 g/dL (2.4-3.5); Glucose 85 mg/dL (70-105); HDL Cholesterol 48 mg/dL (40-59); Hemoglobin A1C 5.3 %; LDL Cholesterol,Calculated 107 mg/dL (< 100); Magnesium 1.8 mg/dL (1.6-2.6); Osmolality,Calculated 283 (280-300); Phosphorous 1.7 mg/dL (2.7-4.5); Potassium 3.3 mEq/L (3.5-5.1); Sodium 137 mEq/L (136-145); Total Protein 7.6 g/dL (6.4-8.9); Triglycerides 79 mg/dL (< 150); eGFR For African Americans > 60 (> 60); eGFR For Non-African Americans > 60 (> 60)
[2021-09-22 04:15] LABS: Folate 17.1 ng/mL (3.0-16.0)
[2021-09-22] MEDS ORDERED: *HR* Enoxaparin 40 MG/0.4 ML SYRINGE SQ SCH (06:00)
[2021-09-22] MEDS: Ringers Solution, Lactated 1,000 ML IVC SCH (06:11)
[2021-09-22] MEDS: Lactobacillus 1 EACH CAP.SPRINK PO SCH (07:31)
[2021-09-22] MEDS: carvediloL 6.25 MG TABLET PO SCH (07:31)
[2021-09-22] MEDS: Aspirin 81 MG TAB.CHEW PO SCH (07:31)
[2021-09-22] MEDS ORDERED: cefTRIAXone 1,000 MG in 0.9 % Sodium Chloride Mini Bag 100 ML IVPB SCH (09:00)
[2021-09-22] MEDS ORDERED: Nicotine 14 MG PATCH.TD24 TD SCH (09:00)
[2021-09-22] MEDS ORDERED: Perflutren Lipid Microsphere 1.3 ML in 0.9 % Sodium Chloride 8.7 ML IVP PRN (09:46)
[2021-09-22 11:40] VITALS: BP 162/99; PULSE 64; TEMP 98.7; O2SAT 96
== END 2021-09-22 13:59 | disposition home or self-care (01) ==
LOC: EMEROOARM 12:02 → 3BNU 12:02
PROVIDERS: ADMIT Internal Medicine; ATTEND Internal Medicine

== ENCOUNTER 2021-10-22 21:54 | Observation (INO) ==
[2021-10-22 22:47] LABS: Basophils # 0.1 K/mcL (0.0-0.2); Basophils % 0.6 %; Eosinophils # 0.2 K/mcL (0.0-0.6); Eosinophils % 1.9 %; Hematocrit 46.5 % (35.3-44.9); Hemoglobin 15.8 g/dL (11.5-15.4); Immature Granulocytes % 0.2 % (0-4); Lymphocytes # 3.4 K/mcL (0.6-4.6); Lymphocytes % 30.4 %; Mean Corpuscular Hemoglobin 32.6 pg (28.0-33.3); Mean Corpuscular Volume 96.1 fL (83.0-100.0); Mean Platelet Volume 9.1 fL (9.4-12.4); Monocytes # 0.8 K/mcL (0.0-1.3); Monocytes % 7.2 %; Neutrophils # 6.8 K/mcL (1.6-8.9); Platelet Count 286 K/mcL (140-400); Red Blood Count 4.84 M/mcL (3.82-4.97); Red Cell Distribution Width 13.2 % (11.5-14.5); Segmented Neutrophils % 59.7 %; White Blood Count 11.3 K/mcL (4.3-11.1)
[2021-10-22 22:50] LABS: Bacteria,Urine Few per hpf (None-Few); Bilirubin,Urine Small (Negative); Blood,Urine Negative (Negative); Clarity,Urine Turbid (Clear); Color,Urine Yellow (Yellow); Glucose,Urine (UA) Normal (Normal); Hyaline Casts,Urine Many per lpf (None Seen); Ketones,Urine 10 mg/dL (Negative); Leukocyte Esterase,Urine Large (Negative); Mucus,Urine Few per lpf (None-Few); Nitrite,Urine Negative (Negative); Protein,Urine 70 mg/dL (Neg-Trace); Specific Gravity,Urine 1.027 (1.010-1.025); Squamous Epithelial Cell,Urine Moderate per hpf (None-Few); WBC,Urine 30-50 per hpf (0-3)
[2021-10-22 22:56] LABS: Influenza A PCR Negative (Negative); Influenza B PCR Negative (Negative); Resp. Syncytial Virus PCR Negative (Negative)
[2021-10-22 22:57] LABS: SARS-CoV-2 by PCR (In House) Negative (Negative)
[2021-10-22 23:05] LABS: BUN/Creatinine Ratio 16 (6-26); Blood Urea Nitrogen 14 mg/dL (8-23); Calcium 10.5 mg/dL (8.6-10.3); Carbon Dioxide 29 mEq/L (23-29); Chloride 100 mEq/L (98-107); Glucose 92 mg/dL (70-105); Osmolality,Calculated 284 (280-300); Potassium 3.3 mEq/L (3.5-5.1); Sodium 137 mEq/L (136-145); eGFR For African Americans > 60 (> 60); eGFR For Non-African Americans > 60 (> 60)
[2021-10-22] MEDS ORDERED: cefTRIAXone 1,000 MG in Water for inj. (sterile) 10 ML IVP ONE (23:20)
[2021-10-23] MEDS ORDERED: Naloxone 0.4 MG/ML INJ IVP PRN (02:42)
[2021-10-23] MEDS ORDERED: Acetaminophen 325 MG TABLET PO PRN (02:42)
[2021-10-23] MEDS ORDERED: Melatonin 3 MG TABLET PO PRN (02:42)
[2021-10-23] MEDS ORDERED: Ondansetron 4 MG/2 ML VIAL IVP PRN (02:42)
[2021-10-23] MEDS ORDERED: Potassium Chloride Elixir 20 MEQ/15 ML UDC PO ONE (02:44)
[2021-10-23] MEDS ORDERED: 0.9 % Sodium Chloride 1,000 ML IVC SCH (02:45)
[2021-10-23] MEDS ORDERED: Nicotine 21 MG PATCH.TD24 TD PRN (05:00)
[2021-10-23 05:44] LABS: Basophils # 0.1 K/mcL (0.0-0.2); Basophils % 0.6 %; Eosinophils # 0.2 K/mcL (0.0-0.6); Eosinophils % 2.5 %; Hematocrit 47.9 % (35.3-44.9); Immature Granulocytes % 0.2 % (0-4); Lymphocytes # 3.2 K/mcL (0.6-4.6); Lymphocytes % 33.6 %; Mean Corpuscular HGB Conc 33.4 g/dL (31.6-35.5); Mean Corpuscular Hemoglobin 32.3 pg (28.0-33.3); Mean Corpuscular Volume 96.6 fL (83.0-100.0); Mean Platelet Volume 9.3 fL (9.4-12.4); Monocytes # 0.6 K/mcL (0.0-1.3); Monocytes % 6.6 %; Neutrophils # 5.4 K/mcL (1.6-8.9); Platelet Count 258 K/mcL (140-400); Red Blood Count 4.96 M/mcL (3.82-4.97); Red Cell Distribution Width 13.3 % (11.5-14.5); Segmented Neutrophils % 56.5 %; White Blood Count 9.6 K/mcL (4.3-11.1)
[2021-10-23 07:51] LABS: Alanine Aminotransferase 13 Units/L (7-52); Albumin 4.5 g/dL (3.5-5.7); Albumin/Globulin Ratio 1.1 (1.1-2.2); Alkaline Phosphatase 66 Units/L (34-104); Aspartate Amino Transferase 23 Units/L (13-39); BUN/Creatinine Ratio 16 (6-26); Bilirubin,Total 0.7 mg/dL (0.3-1.0); Blood Urea Nitrogen 13 mg/dL (8-23); Calcium 10.2 mg/dL (8.6-10.3); Carbon Dioxide 25 mEq/L (23-29); Chloride 102 mEq/L (98-107); Glucose 103 mg/dL (70-105); Osmolality,Calculated 286 (280-300); Potassium 3.3 mEq/L (3.5-5.1); Sodium 138 mEq/L (136-145); Total Protein 8.5 g/dL (6.4-8.9); eGFR For African Americans > 60 (> 60); eGFR For Non-African Americans > 60 (> 60)
[2021-10-23] MEDS: cefTRIAXone 1,000 MG in 0.9 % Sodium Chloride Mini Bag 100 ML IVPB SCH (11:45)
[2021-10-24 03:16] LABS: Basophils # 0.1 K/mcL (0.0-0.2); Basophils % 0.6 %; Eosinophils # 0.3 K/mcL (0.0-0.6); Eosinophils % 2.6 %; Hematocrit 43.2 % (35.3-44.9); Immature Granulocytes % 0.2 % (0-4); Lymphocytes % 30.2 %; Mean Corpuscular HGB Conc 32.9 g/dL (31.6-35.5); Mean Corpuscular Hemoglobin 32.3 pg (28.0-33.3); Mean Corpuscular Volume 98.2 fL (83.0-100.0); Mean Platelet Volume 9.5 fL (9.4-12.4); Monocytes # 0.7 K/mcL (0.0-1.3); Monocytes % 7.4 %; Neutrophils # 5.8 K/mcL (1.6-8.9); Platelet Count 231 K/mcL (140-400); Red Cell Distribution Width 13.2 % (11.5-14.5); White Blood Count 9.9 K/mcL (4.3-11.1)
[2021-10-24 03:19] LABS: Hemoglobin 14.2 g/dL (11.5-15.4)
[2021-10-24 03:34] LABS: BUN/Creatinine Ratio 19 (6-26); Blood Urea Nitrogen 13 mg/dL (8-23); Calcium 9.7 mg/dL (8.6-10.3); Carbon Dioxide 24 mEq/L (23-29); Chloride 109 mEq/L (98-107); Glucose 94 mg/dL (70-105); Osmolality,Calculated 286 (280-300); Potassium 3.6 mEq/L (3.5-5.1); Sodium 138 mEq/L (136-145); eGFR For African Americans > 60 (> 60); eGFR For Non-African Americans > 60 (> 60)
[2021-10-24] MEDS: cefTRIAXone 1,000 MG in 0.9 % Sodium Chloride Mini Bag 100 ML IVPB SCH (08:16)
[2021-10-24 11:49] VITALS: BP 156/91; PULSE 96; TEMP 98.4; O2SAT 97
[2021-10-24 12:28] LABS: Amphetamine Screen,Urine Negative ng/mL (Cutoff=1000); Barbiturate Screen,Urine Negative ng/mL (Cutoff=200); Benzodiazepines Screen,Urine Negative ng/mL (Cutoff=200); Cannabinoid Screen,Urine Negative ng/mL (Cutoff = 50); Cocaine Screen,Urine Negative ng/mL (Cutoff= 300); Opiate Screen,Urine Negative ng/mL (Cutoff=300); Phencyclidine Screen,Urine Negative ng/mL (Cutoff=25)
== END 2021-10-24 13:56 | disposition home or self-care (01) ==
LOC: EMEROOARM 21:54 → 3ANU 21:54 → SUATTDRO 10-23 01:18 → 3ANU 10-23 02:29
PROVIDERS: ADMIT Family Medicine; ATTEND Internal Medicine